=== PATIENT | female | born 1960 | race Caucasian/White ===

== ENCOUNTER → 2021-07-09 | Outpatient (CLI) | payer BC | LOC: MRI 08:00 | DX: M47.26 Other spondylosis with radiculopathy, lumbar region (principal); M48.061 Spinal stenosis, lumbar region without neurogenic claudication; M51.16 Intervertebral disc disorders with radiculopathy, lumbar region; M50.31 Other cervical disc degeneration, high cervical region; M48.02 Spinal stenosis, cervical region | CPT/HCPCS: 36415; 72131; 72156; 72158; 82565; A9577 ==

== ENCOUNTER → 2021-07-24 | Outpatient (CLI) | payer BC | LOC: EXRD 07-22 13:00 | DX: M54.16 Radiculopathy, lumbar region (principal); M81.0 Age-related osteoporosis without current pathological fracture | CPT/HCPCS: 77080 ==